=== PATIENT | female | born 1965 | race Caucasian/White ===

== ENCOUNTER 2020-12-28 07:06 | Emergency (ER) | payer OTHER ==
[~2020-12-28] VITALS: Ht 160 cm; Wt 90.7 kg
[2020-12-28] MEDS ORDERED: NOVOLIN R100 UNIT/1 INJ (07:15)
== END 2020-12-28 09:31 | disposition home or self-care (01) ==
LOC: ED 07:06
DX: E11.649 Type 2 diabetes mellitus with hypoglycemia without coma (principal); E03.9 Hypothyroidism, unspecified; Z88.0 Allergy status to penicillin; Z79.4 Long term (current) use of insulin
CPT/HCPCS: 80053; 81001; 84703; 85025; 99285

== ENCOUNTER 2021-12-16 08:25 | Day surgery (SDC) | payer BC ==
[~2021-12-16] VITALS: Ht 162.6 cm; Wt 88.6 kg
[~2021-12-16 08:25] MED LIST: NOVOLIN N100 UNIT/1 SUB-Q; NOVOLIN R100 UNIT/1 INJ
[2021-12-16] MEDS ORDERED: NOVOLOG100 UNIT/1 SUB-Q (08:40)
[2021-12-16] MEDS ORDERED: LIPITOR40 MG PO (08:41)
[2021-12-16] MEDS ORDERED: LISINOPRIL5 MG PO (08:42)
--- NOTE | 2021-12-16 10:39 | NUR ---
12/16/21 1039 Sheets,Janessa 1030 PT ARRIVED TO PACU ON 4L VIA NC. PT WAKES EASILY AND IS REORIENTED TO PACU. 1037 O2 TURNED OFF. PT ENCOURAGED TO PASS GAS/AIR, EDUCATION GIVEN.
--- NOTE | 2021-12-17 10:58 | OR ---
[facility] [address], [place] [address] Signed DATE OF OPERATION: 12/16/2021 SURGEON: Tomas James MD PREOPERATIVE DIAGNOSES: 1. Colon screening. 2. Family history of polyps (mother and father). 3. Brittle diabetes with insulin pump therapy. POSTOPERATIVE DIAGNOSIS: Normal-appearing colon to cecum. PROCEDURE: Total colonoscopy to cecum. ANESTHESIA: Intravenous sedation, propofol infusion, Rodrigo Valle CRNA. INDICATIONS: This 56-year-old white woman, who is a patient of Dr. José Luis Becerra, and here for screening colonoscopy. She has had no prior colonoscopy. She has had no symptoms of bleeding, diarrhea, or constipation. She does have family history of polyps in both her mother and father. The patient has rather brittle diabetes, became diabetic at a young age 37 years ago and has both insulin resistance and poor insulin production. She takes insulin via pump method. She is admitted to undergo colonoscopy on the basis of her age and family history. She understands the risks of bleeding, infection, and perforation. FINDINGS: The prep was excellent. Complete colonoscopy was undertaken of the cecum without question. She had no evidence of polyps, diverticular formation, colitis, or cancer. DESCRIPTION OF PROCEDURE: The patient was brought to the endoscopy suite and placed in the lateral decubitus position, given intravenous sedation to the point of slurred speech and nystagmus. Digital rectal examination was normal. An Olympus video colonoscope was passed in the rectum and manipulated throughout the colon ultimately intubating the cecum itself. The ileocecal valve and appendiceal orifice were normal. The scope was withdrawn from that point. Examination throughout showed no sign of polyps, diverticular formation, colitis, or cancer. Retroflexed view Electronically Signed By: TOMAS JAMES MD 12/17/21 1058 PATIENT NAME: KARMEN WHITLOCK OPERATIVE REPORT DATE OF : 69 REPORT #: [id number] PHYSICIAN: TOMAS JAMES MD PCP: BEATRIZ DIEHL PAC REPORT IS CONFIDENTIAL AND NOT TO BE RELEASED WITHOUT AUTHORIZATION [facility] [address] [facility] [place] [address] Signed was normal as well. Scope was removed. The patient was taken to the recovery room in good condition. CONCLUDING DIAGNOSIS: Normal colon to cecum. PLAN: Recommend repeat colonoscopy no later than 10 years, sooner if symptoms should occur. MD MELI Cosme/JASPALL /[id number] cc: José Luis Becerra Copies: ~ Electronically Signed By: TOMAS JAMES MD 12/17/21 1058 PATIENT NAME: KARMEN WHITLOCK OPERATIVE REPORT DATE OF : 69 REPORT #: [id number] PHYSICIAN: TOMAS JAMES MD PCP: BEATRIZ DIEHL PAC REPORT IS CONFIDENTIAL AND NOT TO BE RELEASED WITHOUT AUTHORIZATION
== END 2021-12-16 11:09 | disposition home or self-care (01) ==
LOC: DS 08:25 → OPS 08:25
PROVIDERS: ATTEND Surgery
PROC: 0DJD8ZZ Inspection of Lower Intestinal Tract, Via Natural or Artificial Opening Endoscopic (ICD-10-PCS; principal; 2021-12-16 10:00)
DX: Z12.11 Encounter for screening for malignant neoplasm of colon (principal); E10.9 Type 1 diabetes mellitus without complications; E78.5 Hyperlipidemia, unspecified; Z83.71 Family history of colonic polyps; Z79.4 Long term (current) use of insulin; Z96.41 Presence of insulin pump (external) (internal)
CPT/HCPCS: J2704; J3010; J7121